=== PATIENT | female | born 2000 | race Caucasian/White ===

== ENCOUNTER 2021-04-24 11:52 | Emergency (ER) | payer OTHER ==
[~2021-04-24] VITALS: Ht 177.8 cm; Wt 63.6 kg
[2021-04-24 12:01] VITALS: TEMP 97.5
[2021-04-24 12:58] VITALS: BP 114/65; PULSE 70
== END 2021-04-24 12:59 | disposition home or self-care (01) ==
LOC: COL.ER 11:52
DX: S50.12XA Contusion of left forearm, initial encounter (principal); W22.8XXA Striking against or struck by other objects, initial encounter